=== PATIENT | female | born 1990 | race Caucasian/White ===

== ENCOUNTER 2022-05-03 19:15 | Emergency (ER) | payer SELFPAY ==
[2022-05-03] MEDS ORDERED: Sodium Chloride 0.9% 1,000 ML IV ONE (19:20)
[2022-05-03] MEDS ORDERED: Morphine 4 MG/ML VIAL IVPUSH ONE (19:47)
[2022-05-03] MEDS ORDERED: Ondansetron 4 MG/2 ML SDV IVPUSH ONE (19:47)
[2022-05-03] MEDS ORDERED: Iopamidol 755 MG/ML 500 ML Multipack Bottle IVPUSH ONE (21:41)
[2022-05-03 22:23] LABS: CARBON DIOXIDE,CO2 26.5 mmol/L (21.0-32.0); POTASSIUM,K 3.4 mmol/L (3.5-5.1)
[2022-05-03] MEDS ORDERED: Ketorolac 30 MG/ML SDV IVPUSH ONE ×2 (22:35→23:44)
[2022-05-03] MEDS ORDERED: Acetaminophen 500 MG Tab PO ONE (22:58)
[2022-05-03] MEDS ORDERED: Lactated Ringers 1,000 ML IV STA ×2 (23:39)
[2022-05-03] MEDS ORDERED: cefTRIAXone 2 GM in Premix Bag 1 BAG IV ONE (23:41)
[2022-05-04] MEDS ORDERED: Lactated Ringers 1,000 ML IV STA (00:56)
[2022-05-04 01:43] LABS: CARBON DIOXIDE,CO2 24.7 mmol/L (21.0-32.0); POTASSIUM,K 3.1 mmol/L (3.5-5.1)
== END 2022-05-04 01:30 | disposition left against medical advice (07) ==
LOC: MW.ED 19:15
DX: N12 Tubulo-interstitial nephritis, not specified as acute or chronic (principal); Z88.0 Allergy status to penicillin; Z79.899 Other long term (current) drug therapy; Z20.822 Contact with and (suspected) exposure to COVID-19
CPT/HCPCS: 36415; 74177; 80053; 81001; 83605; 83690; 84703; 85025; 85610; 87040; 87086; 87154; 87635; 96361; 96365; 96375; 96376; 99285; A9270; J0696; J1885; J2270; J2405; J7030; J7120; Q9967; 87077; 87088; 87186; U0002

== ENCOUNTER 2022-05-04 23:15 | Inpatient (IN) | payer SELFPAY ==
[2022-05-04] MEDS ORDERED: cefTRIAXone 1 GM in Sodium Chloride 0.9% 50 ML IV STA (23:22)
[2022-05-04] MEDS ORDERED: Lactated Ringers 1,000 ML IV STA (23:22)
[2022-05-04] MEDS ORDERED: Morphine 4 MG/ML VIAL IVPUSH ONE (23:56)
[2022-05-05] MEDS ORDERED: Ondansetron 4 MG/2 ML SDV IVPUSH ONE (00:12)
[2022-05-05] MEDS ORDERED: Ondansetron 4 MG/2 ML SDV ONE (00:13)
[2022-05-05 00:34] LABS: CARBON DIOXIDE,CO2 25.7 mmol/L (21.0-32.0); POTASSIUM,K 3.2 mmol/L (3.5-5.1)
[2022-05-05] MEDS ORDERED: Ketorolac 30 MG/ML SDV IVPUSH ONE (02:49)
[2022-05-05] MEDS ORDERED: Lactated Ringers 1,000 ML IV SCH (03:00)
[2022-05-05] MEDS ORDERED: Acetaminophen 325 MG Tab PO PRN (03:06)
[2022-05-05] MEDS ORDERED: Albuterol/Ipratropium 3.0-0.5 MG/3 ML Neb Soln NEB PRN (03:07)
[2022-05-05] MEDS ORDERED: cefTRIAXone 1 GM in Sodium Chloride 0.9% 50 ML IV ONE (03:10)
[2022-05-05] MEDS ORDERED: Heparin Sodium 5,000 Units/ML Vial SUBCUT SCH (04:00)
[2022-05-05 08:06] LABS: CARBON DIOXIDE,CO2 26.7 mmol/L (21.0-32.0); POTASSIUM,K 3.2 mmol/L (3.5-5.1)
[2022-05-05] MEDS ORDERED: Sodium Chloride 0.9% 10 ML Syringe FLUSH PRN (08:22)
[2022-05-05] MEDS ORDERED: Sodium Chloride 0.9% 2.5 ML Syringe FLUSH PRN (08:22)
[2022-05-05] MEDS ORDERED: Docusate Sodium 100 MG Cap PO PRN (09:00)
[2022-05-05] MEDS: levETIRAcetam 500 MG Tab PO SCH ×2 (09:40→20:21)
[2022-05-05] MEDS: Morphine 2 MG/ML SYRINGE IVPUSH PRN (09:41)
[2022-05-05] MEDS ORDERED: Pantoprazole 40 MG in Sodium Chloride 0.9% 10 ML IVPUSH ONE (09:45)
[2022-05-05] MEDS ORDERED: busPIRone 5 MG Tab PO SCH (10:00)
[2022-05-05] MEDS ORDERED: FLUoxetine 20 MG Cap PO SCH (10:00)
[2022-05-05] MEDS ORDERED: Ondansetron 4 MG/2 ML SDV IVPUSH PRN (10:26)
[2022-05-05] MEDS: busPIRone 5 MG Tab PO SCH (11:24)
[2022-05-05] MEDS: Ketorolac 30 MG/ML SDV IVPUSH SCH ×3 (11:25→22:28)
[2022-05-05] MEDS: Lactated Ringers 1,000 ML IV SCH ×2 (11:33→19:48)
[2022-05-05] MEDS: oxyCODONE 5 MG Tab PO PRN (17:50)
[2022-05-05] MEDS: traZODone 50 MG Tab PO SCH (20:21)
[2022-05-05] MEDS: Enoxaparin 40 MG/0.4 ML Syringe SUBCUT SCH (20:22)
[2022-05-05] MEDS ORDERED: traZODone 50 MG Tab PO SCH (21:00)
[2022-05-06] MEDS: cefTRIAXone 2 GM in Premix Bag 1 BAG IV SCH (03:18)
[2022-05-06] MEDS: Lactated Ringers 1,000 ML IV SCH ×4 (03:22→23:42)
[2022-05-06] MEDS: Ketorolac 30 MG/ML SDV IVPUSH SCH ×4 (05:36→22:28)
[2022-05-06 06:59] LABS: CARBON DIOXIDE,CO2 28.5 mmol/L (21.0-32.0); POTASSIUM,K 3.9 mmol/L (3.5-5.1)
[2022-05-06] MEDS: Pantoprazole 40 MG Tab.CR PO SCH (07:42)
[2022-05-06] MEDS ORDERED: Magnesium Sulfate/Water 2 GM in Premix Bag 1 BAG IV ONE (07:55)
[2022-05-06] MEDS: oxyCODONE 5 MG Tab PO PRN ×3 (08:48→20:31)
[2022-05-06] MEDS: levETIRAcetam 500 MG Tab PO SCH ×2 (08:49→20:19)
[2022-05-06] MEDS: FLUoxetine 20 MG Cap PO SCH (08:49)
[2022-05-06] MEDS: busPIRone 5 MG Tab PO SCH (10:14)
[2022-05-06] MEDS: Morphine 2 MG/ML SYRINGE IVPUSH PRN (18:25)
[2022-05-06] MEDS: Enoxaparin 40 MG/0.4 ML Syringe SUBCUT SCH (20:19)
[2022-05-06] MEDS: traZODone 50 MG Tab PO SCH (20:19)
[2022-05-07] MEDS: cefTRIAXone 2 GM in Premix Bag 1 BAG IV SCH (02:41)
[2022-05-07] MEDS: Ketorolac 30 MG/ML SDV IVPUSH SCH ×2 (04:46→11:09)
[2022-05-07] MEDS: Pantoprazole 40 MG Tab.CR PO SCH (06:31)
[2022-05-07 06:39] LABS: CARBON DIOXIDE,CO2 26.5 mmol/L (21.0-32.0); POTASSIUM,K 3.5 mmol/L (3.5-5.1)
[2022-05-07] MEDS: busPIRone 5 MG Tab PO SCH (08:07)
[2022-05-07] MEDS: FLUoxetine 20 MG Cap PO SCH (08:08)
[2022-05-07] MEDS: levETIRAcetam 500 MG Tab PO SCH (08:08)
[2022-05-07] MEDS: oxyCODONE 5 MG Tab PO PRN ×2 (08:14→12:16)
[2022-05-07] MEDS: Lactated Ringers 1,000 ML IV SCH (08:21)
[2022-05-07] MEDS ORDERED: Magnesium Sulfate/Water 2 GM in Premix Bag 1 BAG IV ONE (10:32)
== END 2022-05-07 14:35 | disposition home or self-care (01) | DRG 690 ==
LOC: MW.ED 23:15 → MW.MS 05-05 00:47
PROVIDERS: ADMIT Student in an Organized Health Care Education/Training Program; ATTEND Student in an Organized Health Care Education/Training Program
DX: N10 Acute pyelonephritis (principal); R78.81 Bacteremia; R74.01 Elevation of levels of liver transaminase levels; G40.909 Epilepsy, unspecified, not intractable, without status epilepticus; F41.9 Anxiety disorder, unspecified; K59.09 Other constipation; B96.20 Unspecified Escherichia coli [E. coli] as the cause of diseases classified elsewhere; Z88.0 Allergy status to penicillin
CPT/HCPCS: 36415; 76705; 76705-26; 80053; 81003; 81025; 83605; 83735; 85025; 85610; 87040; 87086; 96365; 96375; 99285-25; A9270-GY; C9113; J0696; J1644; J1650; J1885; J2270; J2405; J3475; J3490; J7120

== ENCOUNTER 2022-07-07 18:52 | Emergency (ER) | payer SELFPAY ==
[2022-07-07] MEDS ORDERED: Sodium Chloride 0.9% 1,000 ML IV ONE (21:08)
[2022-07-07] MEDS ORDERED: Morphine 4 MG/ML Syringe IVPUSH ONE (21:09)
[2022-07-07] MEDS ORDERED: Ondansetron 4 MG/2 ML SDV IVPUSH ONE (21:09)
[2022-07-07 21:17] LABS: CORONAVIRUS COVID-19 NAA NEGATIVE (NEGATIVE); INFLUENZA A NAA NEGATIVE (NEGATIVE); INFLUENZA B NAA NEGATIVE (NEGATIVE)
[2022-07-07 21:44] LABS: CARBON DIOXIDE,CO2 26.3 mmol/L (21.0-32.0); POTASSIUM,K 3.4 mmol/L (3.5-5.1)
[2022-07-07] MEDS ORDERED: Ketorolac 30 MG/ML SDV IVPUSH ONE (22:07)
[2022-07-07] MEDS ORDERED: Pantoprazole 80 MG in Sodium Chloride 0.9% 10 ML IVPUSH ONE (23:15)
[2022-07-07] MEDS ORDERED: Alum Hydro/Mag Hydro/Simeth XS 15 ML, Metoclopramide 5 MG, Lidocaine 2% 5 ML PO ONE ×3 (23:15)
[2022-07-07] MEDS ORDERED: Famotidine 20 MG Tab PO ONE (23:16)
[2022-07-07] MEDS ORDERED: Iopamidol 755 MG/ML 500 ML Multipack Bottle IVPUSH STA ×2 (23:56→23:59)
== END 2022-07-08 00:58 | disposition home or self-care (01) ==
LOC: MW.ED 18:52
DX: K29.70 Gastritis, unspecified, without bleeding (principal); R07.89 Other chest pain; Z86.16 Personal history of COVID-19; Z88.0 Allergy status to penicillin; Z79.899 Other long term (current) drug therapy; Z20.822 Contact with and (suspected) exposure to COVID-19
CPT/HCPCS: 0240U; 36415; 71045; 71045-26; 74177; 74177-26; 80053; 81003; 83690; 84484; 84703; 85025; 93005; 96361; 96374; 96375; 99285-25; A9270-GY; C9113; J1885; J2270; J2405; J3490; J7030; Q9967

== ENCOUNTER 2022-08-04 13:18 | Emergency (ER) | payer SELFPAY ==
[2022-08-04] MEDS ORDERED: Sodium Chloride 0.9% 10 ML Syringe FLUSH PRN (13:51)
[2022-08-04] MEDS ORDERED: Sodium Chloride 0.9% 2.5 ML Syringe FLUSH PRN (13:51)
[2022-08-04] MEDS ORDERED: Ondansetron 4 MG/2 ML SDV IVPUSH ONE (13:52)
[2022-08-04] MEDS ORDERED: Sodium Chloride 0.9% 1,000 ML IV ONE (13:52)
[2022-08-04] MEDS ORDERED: Famotidine 20 MG/2 ML SDV IVPUSH ONE (13:52)
[2022-08-04] MEDS ORDERED: Alum Hydro/Mag Hydro/Simeth XS 15 ML, Lidocaine 2% 5 ML PO ONE ×2 (13:53)
[2022-08-04 14:35] LABS: CARBON DIOXIDE,CO2 27.1 mmol/L (21.0-32.0)
[2022-08-04 15:42] LABS: CORONAVIRUS COVID-19 NAA NEGATIVE (NEGATIVE); INFLUENZA A NAA NEGATIVE (NEGATIVE); INFLUENZA B NAA NEGATIVE (NEGATIVE)
== END 2022-08-04 16:29 | disposition home or self-care (01) ==
LOC: MW.ED 13:18
DX: K29.00 Acute gastritis without bleeding (principal); Z88.0 Allergy status to penicillin; Z20.822 Contact with and (suspected) exposure to COVID-19
CPT/HCPCS: 0240U; 36415; 71045; 80053; 83690; 83735; 84484; 85025; 85379; 85610; 93005; 96361; 96374; 96375; 99284; A9270; J2405; J3490; J7030

== ENCOUNTER 2024-06-01 23:58 | Emergency (ER) | payer MEDICAID, OTHER ==
[2024-06-02] MEDS ORDERED: Sodium Chloride 0.9% 10 ML Syringe FLUSH PRN (00:29)
[2024-06-02] MEDS ORDERED: Sodium Chloride 0.9% 2.5 ML Syringe FLUSH PRN (00:29)
[2024-06-02 00:38] LABS: BASOPHILS ABSOLUTE AUTO 0.04 K/uL (0.00-0.20); BASOPHILS PERCENT AUTO 0.6 % (0.0-1.0); EOSINOPHILS ABSOLUTE AUTO 0.18 K/uL (0.00-0.45); EOSINOPHILS PERCENT AUTO 2.6 % (0.0-6.0); LYMPHOCYTES PERCENT AUTO 53.9 % (24.0-44.0); MEAN CORPUSCULAR HGB CONC 34.2 g/dL (32.0-36.0); MEAN CORPUSCULAR VOLUME 87.6 fL (83.0-99.0); MEAN PLATELET VOLUME 10.8 fL (9.4-12.3); MONOCYTES ABSOLUTE AUTO 0.65 K/uL (0.00-0.80); MONOCYTES PERCENT AUTO 9.2 % (0.0-8.0); NEUTROPHILS ABSOLUTE AUTO 2.38 K/uL (1.80-7.70); NEUTROPHILS PERCENT AUTO 33.7 % (41.0-71.0); PLATELET COUNT,PLT 249 K/uL (150-400); RED BLOOD CELL COUNT 4.34 M/uL (4.10-5.30); WHITE BLOOD CELL COUNT,WBC 7.05 K/uL (3.9-11.3)
[2024-06-02 00:40] LABS: APPEARANCE,URINE CLEAR; BILIRUBIN,URINE NEGATIVE (NEGATIVE); COLOR,URINE YELLOW; GLUCOSE,URINE NEGATIVE (NEGATIVE); KETONES,URINE NEGATIVE (NEGATIVE); LEUKOCYTE ESTERASE,URINE NEGATIVE (NEGATIVE); NITRITE,URINE NEGATIVE (NEGATIVE); OCCULT BLOOD,URINE NEGATIVE (NEGATIVE); PROTEIN,URINE NEGATIVE (NEGATIVE); UROBILINOGEN,URINE 0.2 EU/dL (<2.0)
[2024-06-02 01:03] LABS: A/G RATIO 1.2 (0.9-1.6); ALBUMIN 3.5 g/dL (3.4-5.0); BILIRUBIN TOTAL 0.2 mg/dL (0.2-1.0); CALCIUM 9.2 mg/dL (8.5-10.1); CARBON DIOXIDE,CO2 28.7 mmol/L (21.0-32.0); CREATININE 0.7 mg/dL (0.6-1.0); EST CRCL DRUG DOSING (CG) 105.01 mL/min; POTASSIUM,K 4.1 mmol/L (3.5-5.1); PROTEIN TOTAL,TP 6.3 g/dL (6.4-8.2)
[2024-06-02] MEDS: Sodium Chloride 0.9% 1,000 ML IV ONE (01:22)
[2024-06-02] MEDS: Ketorolac 30 MG/ML SDV IVPUSH STA (01:23)
[2024-06-02] MEDS: Ondansetron 4 MG/2 ML SDV IVPUSH ONE (01:35)
[2024-06-02] MEDS: Iopamidol 755 MG/ML 500 ML Multipack Bottle IVPUSH ONE (01:48)
[2024-06-02] MEDS: Morphine 4 MG/ML Syringe IVPUSH ONE (02:42)
== END 2024-06-02 05:46 | disposition home or self-care (01) ==
LOC: MW.ED 23:58
DX: N83.201 Unspecified ovarian cyst, right side (principal); Z91.040 Latex allergy status; Z88.0 Allergy status to penicillin
CPT/HCPCS: 36415; 74177; 80053; 81003; 81025; 85025; 96361; 96374; 96375; 99284; J1885; J2270; J2405; J7030; Q9967

== ENCOUNTER 2024-09-19 17:12 | Emergency (ER) | payer MEDICAID ==
[2024-09-19 18:34] LABS: BILIRUBIN,URINE NEGATIVE (NEGATIVE); COLOR,URINE YELLOW; GLUCOSE,URINE NEGATIVE (NEGATIVE); KETONES,URINE NEGATIVE (NEGATIVE); LEUKOCYTE ESTERASE,URINE NEGATIVE (NEGATIVE); NITRITE,URINE NEGATIVE (NEGATIVE); OCCULT BLOOD,URINE TRACE-INTACT (NEGATIVE); PH,URINE 7.5 (5.0-8.0); PROTEIN,URINE NEGATIVE (NEGATIVE); UROBILINOGEN,URINE 0.2 EU/dL (<2.0)
[2024-09-19 18:48] LABS: AMORPHOUS SEDIMENT,URINE FEW (NEGATIVE); APPEARANCE,URINE HAZY; BACTERIA,URINE FEW (NEGATIVE); EPITHELIAL CELLS,URINE FEW (NONE-FEW); RBC,URINE 0-1 (0-2/HPF); WBC,URINE 0-2 (0-5/HPF)
[2024-09-19 19:16] LABS: BASOPHILS ABSOLUTE AUTO 0.02 K/uL (0.00-0.20); BASOPHILS PERCENT AUTO 0.3 % (0.0-1.0); EOSINOPHILS ABSOLUTE AUTO 0.08 K/uL (0.00-0.45); HEMATOCRIT 40.9 % (37.0-47.0); IMMATURE GRAN ABSOLUTE AUTO 0.02 K/uL (0.00-0.05); IMMATURE GRAN PERCENT AUTO 0.3 % (0.0-0.4); LYMPHOCYTES ABSOLUTE AUTO 2.53 K/uL (1.00-4.80); LYMPHOCYTES PERCENT AUTO 31.9 % (24.0-44.0); MEAN CORPUSCULAR HEMOGLOBIN 30.1 pg (28.0-32.0); MEAN CORPUSCULAR HGB CONC 34.2 g/dL (32.0-36.0); MEAN PLATELET VOLUME 9.4 fL (9.4-12.3); MONOCYTES PERCENT AUTO 6.3 % (0.0-8.0); NEUTROPHILS ABSOLUTE AUTO 4.78 K/uL (1.80-7.70); NEUTROPHILS PERCENT AUTO 60.2 % (41.0-71.0); PLATELET COUNT,PLT 490 K/uL (150-400); RED BLOOD CELL COUNT 4.65 M/uL (4.10-5.30); WHITE BLOOD CELL COUNT,WBC 7.93 K/uL (3.9-11.3)
[2024-09-19] MEDS: Ketorolac 30 MG/ML SDV IVPUSH STA (19:18)
[2024-09-19] MEDS: Ondansetron 4 MG/2 ML SDV IVPUSH STA (19:18)
[2024-09-19] MEDS: Iopamidol 755 MG/ML 500 ML Multipack Bottle IVPUSH ONE (19:44)
[2024-09-19 19:54] LABS: ALBUMIN 3.7 g/dL (3.4-5.0); BILIRUBIN TOTAL 0.2 mg/dL (0.2-1.0); CALCIUM 9.1 mg/dL (8.5-10.1); CARBON DIOXIDE,CO2 30.5 mmol/L (21.0-32.0); CREATININE 0.6 mg/dL (0.6-1.0); EST CRCL DRUG DOSING (CG) 108.46 mL/min; POTASSIUM,K 4.3 mmol/L (3.5-5.1); PROTEIN TOTAL,TP 7.4 g/dL (6.4-8.2)
[2024-09-19 20:20] LABS: AMPHETAMINES SCREEN, URINE PRESUMPTIVE POSITIVE (CUTOFF=500); BARBITURATE SCREEN,URINE NEGATIVE (CUTOFF=200); BENZODIAZEPINES SCREEN,URINE NEGATIVE (CUTOFF=150); BUPRENORPHINE SCREEN,URINE PRESUMPTIVE POSITIVE (CUTOFF=10); METHADONE SCREEN, URINE NEGATIVE (CUTOFF=200); METHAMPHETAMINES SCREEN, URINE PRESUMPTIVE POSITIVE (CUTOFF=500); OXYCODONE SCREEN,URINE NEGATIVE (CUT0FF=100); PCP SCREEN,URINE NEGATIVE (CUTOFF=25); THC SCREEN,URINE 20 NG/ML PRESUMPTIVE POSITIVE (CUTOFF=50)
== END 2024-09-19 21:25 | disposition home or self-care (01) ==
LOC: MW.ED 17:12
DX: R10.84 Generalized abdominal pain (principal); F12.10 Cannabis abuse, uncomplicated; F15.10 Other stimulant abuse, uncomplicated; R63.4 Abnormal weight loss; L60.9 Nail disorder, unspecified; Z79.899 Other long term (current) drug therapy; Z88.0 Allergy status to penicillin; Z91.040 Latex allergy status; Z75.8 Other problems related to medical facilities and other health care
CPT/HCPCS: 36415; 74177; 80053; 80305; 81001; 81025; 83690; 85025; 85652; 86140; 96374; 96375; 99284; J1885; J2405; Q9967